=== PATIENT | male | born 1965 | race Caucasian/White ===

== ENCOUNTER 2021-01-02 19:38 | Emergency (ER) | payer OTHER ==
[~2021-01-02] VITALS: Ht 182.9 cm; Wt 99.8 kg
[2021-01-02] MEDS ORDERED: VASOTEC5 MG (19:55)
== END 2021-01-02 23:51 | disposition home or self-care (01) ==
LOC: ER 19:38
DX: R00.0 Tachycardia, unspecified (principal); R53.1 Weakness; Z03.818 Encounter for observation for suspected exposure to other biological agents ruled out

== ENCOUNTER 2021-01-14 13:17 | Outpatient (CLI) | payer OTHER | END 2021-01-14 13:27 | disposition home or self-care (01) | LOC: TOM 13:17 | PROVIDERS: ATTEND Internal Medicine Cardiovascular Disease | DX: R91.8 Other nonspecific abnormal finding of lung field (principal) ==

== ENCOUNTER → 2021-01-14 | Emergency (ER) | payer OTHER ==
[~2021-01-14] VITALS: Ht 185.4 cm; Wt 9.5 kg
[~2021-01-14] MED LIST: VASOTEC5 MG
== END | disposition home or self-care (01) ==
LOC: ER 14:10
DX: R00.0 Tachycardia, unspecified (principal); R53.1 Weakness; Z11.52 Encounter for screening for COVID-19

== ENCOUNTER 2021-04-28 12:56 | Outpatient (CLI) | payer OTHER | END 2021-04-28 12:57 | disposition home or self-care (01) | LOC: LAB 12:56 | PROVIDERS: ATTEND Urology | DX: J98.8 Other specified respiratory disorders (principal); N28.1 Cyst of kidney, acquired; Z12.5 Encounter for screening for malignant neoplasm of prostate ==